=== PATIENT | female | born 1975 | race Caucasian/White ===

== ENCOUNTER → 2018-11-28 | Outpatient (CLI) | payer OTHER ==
--- NOTE | 2018-11-29 08:43 | MM ---
Reason for exam: screening (asymptomatic). Baseline mammogram. Physical Findings: Nurse did not find any significant physical abnormalities on exam. MG Screening Mammo w CAD Bilateral CC and MLO view(s) were taken. There are scattered fibroglandular densities. Focal asymmetry These results were verbally communicated with the patient and result sheet given to the patient on 11/28/18. ASSESSMENT: Incomplete: need additional imaging evaluation, BI-RAD 0 RECOMMENDATION: Special view mammogram of the left breast.
--- NOTE | 2018-11-29 08:44 | MM ---
Reason for exam: additional evaluation requested from abnormal screening. Physical Findings: Breast exam preformed at baseline screening. MG Work Up Mamm w CAD LT Spot compression CC, spot compression MLO, and ML view(s) were taken of the left breast. Focal asymmetry persistent on CC compression. These results were verbally communicated with the patient and result sheet given to the patient on 11/28/18. ASSESSMENT: Incomplete: need additional imaging evaluation, BI-RAD 0 RECOMMENDATION: Ultrasound of the left breast.
--- NOTE | 2018-11-29 08:46 | USB ---
Reason for exam: additional evaluation requested from abnormal screening. US Breast Workup Limited LT Left limited breast ultrasound including focal area of concern, retroareolar and axilla demonstrates a 0.5 x 0.3 x 0.7cm mixed lesion at 9 o'clock. These results were verbally communicated with the patient and result sheet given to the patient on 11/28/18. ASSESSMENT: Suspicious, BI-RAD 4 RECOMMENDATION: Ultrasound core biopsy of the left breast. Called Dr. Man with mammographic findings and has scheduled an appointment for the patient for 12/26/18 at 10:[address] Calhoun. Biopsy scheduled for 12/05/18 at 12:20. PRELIMINARY REPORT CALLED AND FAXED TO DR. CALHOUN ON 11/29/18.
== END | disposition home or self-care (01) ==
LOC: RADMAMWWP 12:44
PROVIDERS: ATTEND Obstetrics & Gynecology
DX: Z12.31 Encounter for screening mammogram for malignant neoplasm of breast (principal); R92.8 Other abnormal and inconclusive findings on diagnostic imaging of breast
CPT/HCPCS: 77065; 77067

== ENCOUNTER → 2018-12-05 | Day surgery (SDC) | payer OTHER ==
[2018-12-05 11:39] VITALS: RESP 16; BMI 33.4
[2018-12-05 13:09] VITALS: BP 132/81; PULSE 77; TEMP 98.1
--- NOTE | 2018-12-05 14:35 | USB ---
EXAMINATION TYPE: US biopsy breast VAD LT, Postbiopsy MG diagnostic mammo LT wo CAD DATE OF EXAM: 12/05/2018 CLINICAL HISTORY: 43-year-old female R92.8 ABN Mammogram. TECHNIQUE: Ultrasound guided core biopsy of the left breast. COMPARISON: 11/28/2018 FINDINGS: The procedure of ultrasound guided core biopsy was explained to the patient. Benefits, alternatives, and risks were discussed. An informed consent was then obtained. The patient was placed in supine positioning for imaging and for the procedure. The overlying skin was prepped and draped in usual sterile fashion. Lidocaine buffered with bicarbonate was used as anesthetic into the skin and subcutaneous tissue up to area of concern in the 9:00 left breast. Under ultrasound guidance, a 13-gauge vacuum-assisted biopsy gun device was used to obtain 6 core samples. Following this, a wing clip was left in lesion. The patient tolerated the procedure well without any immediate complication. The patient was kept in the radiology department for short stay after the procedure and then discharged home in stable condition. Postbiopsy mammogram shows the mammographic focal asymmetry. IMPRESSION: Successful, uncomplicated ultrasound guided core biopsy of vague 9:00 lesion corresponding to mammographic focal asymmetry. Full pathology results to follow. Pathology Results: Benign LEFT BREAST, NINE O'CLOCK, ULTRASOUND GUIDED CORE BIOPSY: Fibrocystic changes including stromal fibrosis and small cysts. Focal pseudoangiomatous stromal hyperplasia (PASH). Recommendation Follow up mammogram and ultrasound of the left breast in 6 months. RADHA
== END ==
LOC: RADUSWWP 11:26
PROVIDERS: ATTEND Surgery
DX: N60.12 Diffuse cystic mastopathy of left breast (principal); R92.8 Other abnormal and inconclusive findings on diagnostic imaging of breast
CPT/HCPCS: 19083; 88305; 77065; A4648; J2001

== ENCOUNTER → 2019-05-26 | Outpatient (CLI) | payer OTHER ==
--- NOTE | 2019-05-26 10:27 | MM ---
Reason for exam: follow-up at short interval from prior study. Last mammogram was performed 6 months ago. History: Benign US biopsy breast VAD LT of the left breast, December 05, 2018. Physical Findings: Nurse did not find any significant physical abnormalities on exam. MG Diagnostic Mammo LT w CAD CC and MLO view(s) were taken of the left breast. Prior study comparison: December 05, 2018, left breast MG diagnostic mammo LT wo CAD. November 28, 2018, left breast MG work up mamm w CAD LT. The breast tissue is heterogeneously dense. This may lower the sensitivity of mammography. Previous mammotome biopsy in the left breast. Focal asymmetry, stable. These results were verbally communicated with the patient and result sheet given to the patient on 05/26/19. ASSESSMENT: Incomplete: need additional imaging evaluation, BI-RAD 0 RECOMMENDATION: Ultrasound of the left breast.
--- NOTE | 2019-05-26 10:28 | USB ---
Reason for exam: follow-up at short interval from prior study. History: Benign US biopsy breast VAD LT of the left breast, December 05, 2018. US Breast LT Left complete breast ultrasound includes all four quadrants, the retroareolar region and axilla. Finding demonstrates no cystic or solid lesion seen. These results were verbally communicated with the patient and result sheet given to the patient on 05/26/19. ASSESSMENT: Negative, BI-RAD 1 RECOMMENDATION: Return to routine screening mammogram schedule for both breasts.
== END | disposition home or self-care (01) ==
LOC: RADMAMWWP 09:03
PROVIDERS: ATTEND Surgery
DX: R92.8 Other abnormal and inconclusive findings on diagnostic imaging of breast (principal)
CPT/HCPCS: 77065

== ENCOUNTER → 2020-04-14 | Outpatient (CLI) | payer OTHER ==
--- NOTE | 2020-04-15 11:11 | MM ---
Reason for exam: screening (asymptomatic). Last mammogram was performed 11 months ago. History: Benign US biopsy breast VAD LT of the left breast, December 05, 2018. Physical Findings: A clinical breast exam by your physician is recommended on an annual basis and results should be correlated with mammographic findings. MG Screening Mammo w CAD Bilateral CC and MLO view(s) were taken. Prior study comparison: May 26, 2019, left breast MG diagnostic mammo LT w CAD. December 05, 2018, left breast MG diagnostic mammo LT wo CAD. The breast tissue is heterogeneously dense. This may lower the sensitivity of mammography. Previous mammotome biopsy in the left breast. No significant changes when compared with prior studies. ASSESSMENT: Benign, BI-RAD 2 RECOMMENDATION: Routine screening mammogram of both breasts in 1 year.
== END | disposition home or self-care (01) ==
LOC: RADMAMWWP 11:55
PROVIDERS: ATTEND Family Medicine
DX: Z12.31 Encounter for screening mammogram for malignant neoplasm of breast (principal)
CPT/HCPCS: 77067

== ENCOUNTER → 2021-04-21 | Outpatient (CLI) | payer OTHER ==
--- NOTE | 2021-04-25 15:12 | MM ---
Reason for exam: screening (asymptomatic). Last mammogram was performed 1 year ago. History: Benign US biopsy breast VAD LT of the left breast, December 05, 2018. Physical Findings: A clinical breast exam by your physician is recommended on an annual basis and results should be correlated with mammographic findings. MG Screening Mammo w CAD Bilateral CC and MLO view(s) were taken. Prior study comparison: April 14, 2020, bilateral MG screening mammo w CAD. May 26, 2019, left breast MG diagnostic mammo LT w CAD. There are scattered fibroglandular densities. Stable medial focal asymmetry left breast at site of previous biopsy. No significant changes when compared with prior studies. ASSESSMENT: Benign, BI-RAD 2 RECOMMENDATION: Routine screening mammogram of both breasts in 1 year.
== END | disposition home or self-care (01) ==
LOC: RADMAMWWP 11:15
PROVIDERS: ATTEND Family Medicine
DX: Z12.31 Encounter for screening mammogram for malignant neoplasm of breast (principal)
CPT/HCPCS: 77067

== ENCOUNTER → 2022-04-24 | Outpatient (CLI) | payer OTHER ==
--- NOTE | 2022-04-25 08:05 | MM ---
Reason for Exam: Screening (asymptomatic). Last screening mammogram was performed 12 month(s) ago. Patient History: Menarche at age 15. First Full-Term at age 31. 12/05/2018, Benign Core Biopsy on the left side. Last menstrual period: 03/29/2022 Risk Values: Malu 5 year model risk: 1.3%. NCI Lifetime model risk: 12.9%. Prior Study Comparison: 05/26/2019 Left Diagnostic Mammogram, [facility]. 04/14/2020 Bilateral Screening Mammogram, [facility]. 04/21/2021 Bilateral Screening Mammogram, [facility]. Tissue Density: The breast tissue is heterogeneously dense. This may lower the sensitivity of mammography. Findings: Analyzed By CAD. There is no suspicious group of microcalcifications or new suspicious mass in either breast. Filled benign asymmetric density left breast which has been sampled previously. Overall Assessment: Benign, BI-RAD 2 Management: Screening Mammogram of both breasts in 1 year. A clinical breast exam by your physician is recommended on an annual basis and results should be correlated with mammographic findings. Electronically signed and approved by: Mike Nayak M.D. Radiologis
== END | disposition home or self-care (01) ==
LOC: RADMAMWWP 12:31
PROVIDERS: ATTEND Family Medicine
DX: Z12.31 Encounter for screening mammogram for malignant neoplasm of breast (principal)
CPT/HCPCS: 77067

== ENCOUNTER → 2023-04-26 | Outpatient (CLI) | payer OTHER ==
--- NOTE | 2023-04-27 21:56 | MM ---
Reason for Exam: Screening (asymptomatic). Last screening mammogram was performed 12 month(s) ago. Patient History: Menarche at age 15. First Full-Term at age 31. Premenopausal. 12/05/2018, Benign Core Biopsy on the left side. Risk Values: Malu 5 year model risk: 1.4%. NCI Lifetime model risk: 12.7%. Prior Study Comparison: 04/14/2020 Bilateral Screening Mammogram, [facility]. 04/21/2021 Bilateral Screening Mammogram, [facility]. 04/24/2022 Bilateral MG screening mammo w CAD, [facility]. Tissue Density: There are scattered fibroglandular densities. Findings: Analyzed By CAD. Gradually increasing mass within the medial left breast with microclip in this location. Otherwise, no significant change. Overall Assessment: Incomplete: need additional imaging evaluation, BI-RAD 0 Management: Special View Mammogram of the left breast. Diagnostic Breast Ultrasound of the left breast. Additional view to include spot 3-D CC, spot 3-D MLO, and 3-D LM. Subsequent targeted left breast ultrasound. Despite the prior biopsy, we note progressive gradual enlargement. [facility] will attempt to contact patient to return for supplemental views and ultrasound if indicated. Electronically signed and approved by: Ray Mora M.D. Radiologist
== END | disposition home or self-care (01) ==
LOC: RADMAMWWP 14:56
PROVIDERS: ATTEND Obstetrics & Gynecology
DX: Z12.31 Encounter for screening mammogram for malignant neoplasm of breast (principal)
CPT/HCPCS: 77067

== ENCOUNTER → 2023-05-18 | Day surgery (SDC) | payer OTHER ==
--- NOTE | 2023-05-23 13:04 | MM ---
Reason for Exam: Post Procedure Mammogram. Last screening mammogram was performed less than 1 month ago. Patient History: Menarche at age 15. First Full-Term at age 31. Premenopausal. 12/05/2018, Benign Core Biopsy on the left side. Risk Values: Malu 5 year model risk: 1.4%. NCI Lifetime model risk: 12.7%. Prior Study Comparison: 04/24/2022 Bilateral MG screening mammo w CAD, [facility]. 04/26/2023 Bilateral MG screening mammo w CAD, [facility]. 05/08/2023 Left MG 3D work up w/cad LT, [facility]. 05/08/2023 Left US breast workup limited LT, [facility]. Tissue Density: Left: There are scattered fibroglandular densities. Pathology Description: Location: 10 o'clock. Marker Left Behind. Needle Type: Mammotome Cores: 6 Gauge: 13 The procedure of ultrasound guided core biopsy was explained to the patient. Benefits, alternatives, and risks were discussed. An informed consent was then obtained. The patient was placed in supine positioning for imaging and for the procedure. The overlying skin was prepped and draped in usual sterile fashion. Lidocaine was used as anesthetic into the skin and subcutaneous tissue up to area of concern in the left breast at 10:00 4 cm from the nipple. Under ultrasound guidance, a 12-gauge vacuum assisted biopsy gun device was used to obtain 6 core samples. Following this, a biopsy clip was left in lesion. The patient tolerated the procedure well without any immediate complication. The patient was kept in the radiology department for short stay after the procedure and then discharged home in stable condition. Postprocedure mammogram: The patient was transferred to mammography for physician ordered post procedure mammogram for clip placement verification. Postprocedure mammogram demonstrates coil clip to be adjacent to previous biopsy clip within the left breast in appropriate position. Impression: Successful, uncomplicated ultrasound guided core biopsy of area of concern in the left breast, full pathology results to follow. Pathology Results: Result: Benign, Focal fibrosis. LEFT BREAST, 10:00 POSITION, ULTRASOUND GUIDED CORE BIOPSY: Benign breast tissue with focal fibrosis. See note. Notes Examination of the current specimen reveals benign mammary adipose tissue with focal and scattered areas of hypocellular and bland fibrosis. Rare areas within this fibrous tissue have features which are suggestive of possible pseudoangiomatous stromal hyperplasia (PASH). Another differential consideration for the fibrotic features seen includes a fibrous scar. The current specimen shows no diagnostic evidence of in situ or invasive carcinoma. It is noted that a prior left breast 9:00 position biopsy from 2019 (case [id number]) shows focal features of pseudoangiomatous stromal hyperplasia. Clinical correlation with imaging studies is suggested, as deemed clinically appropriate. Overall Assessment: Benign Assessment: MG diagnostic mammo LT wo CAD. - Left: Benign, BI-RAD 2. Management: Diagnostic Mammogram of the left breast in 6 months. If persistent enlargement, excision can be considered. Electronically signed and approved by: Magdaleno Hair D.O.
== END ==
LOC: RADUSWWP 10:14
PROVIDERS: ATTEND Surgery
DX: N60.32 Fibrosclerosis of left breast (principal)
CPT/HCPCS: 88305; 77065; 19083; A4648

== ENCOUNTER 2023-06-28 10:46 | Day surgery (SDC) | payer OTHER ==
[2023-06-26 14:51] VITALS: BMI 31.7
[~2023-06-28 10:46] MED LIST: ACETAMINOPHEN TAB 500 MG TAB PO PRN; ALPRAZolam 0.5 MG TAB PO PRN; DEXAMETHASONE SOD PHOSPHATE 4 MG/ML 1 ML VIAL IV ONE; HEPARIN SODIUM,PORCINE/PF 5,000 UNIT/0.5 ML SYRINGE SQ PRN; LACTATED RINGERS 1,000 ML IV SCH; ONDANSETRON 4 MG/2 ML VIAL IVP ONE
[2023-06-28] MEDS ORDERED: ALPRAZolam 0.5 MG TAB ONE (10:55)
[2023-06-28] MEDS ORDERED: ALPRAZolam 0.5 MG TAB PO ONE (11:27)
[2023-06-28] MEDS ORDERED: LIDOCAINE 1% INJ 10MG/ML (20 ML MDV) SQ ONE (13:06)
[2023-06-28] MEDS ORDERED: fentaNYL (PF) 50 MCG/ML 2 ML AMP ONE (14:53)
[2023-06-28] MEDS ORDERED: LIDOCAINE 2% INJ 20 MG/ML (2 ML VIAL) ONE (14:53)
[2023-06-28] MEDS ORDERED: PROPOFOL 10 MG/ML 20 ML VIAL IV ONE (14:53)
[2023-06-28] MEDS ORDERED: MIDAZOLAM 2 MG/2 ML VIAL ONE (14:53)
[2023-06-28] MEDS ORDERED: HYDROcodone/APAP 5-325MG 1 EACH TAB PO PRN (15:50)
[2023-06-28] MEDS ORDERED: NALOXONE 0.4 MG/ML 1 ML VIAL IV PRN (15:50)
--- NOTE | 2023-06-28 15:56 | P.OP ---
Date of Procedure: 06/28/23 Procedure(s) Performed: PREOPERATIVE DIAGNOSIS: Abnormal left mammogram POSTOPERATIVE DIAGNOSIS: Same PROCEDURE: Left Breast wire localization biopsy SURGEON: Unique EBL: 5 mL ANESTHESIA: General COMPLICATIONS: None OPERATIVE PROCEDURE: Patient was placed on the operating room table in the supine position. The wire entrance site was then addressed. This was present at the 9:00 location. A curvilinear incision was made adjacent to the areola. The subcutaneous tissues were dissected medially until the wire was seen. The wire was then brought out of this incision site. I followed the wire down into the breast tissue. The tissue around the wire was then excised using electrocautery. As I was dissecting there was some areas that appeared consistent with recent biopsy site changes. Specimen was then sent for permanent sectioning. Area irrigated with saline. No bleeding was seen. The subcutaneous tissues were closed using 3-0 Vicryl sutures. The skin was closed using a running 4-0 Monocryl stitch. Skin glue was then applied. DISPOSITION: Stable to recovery room
[2023-06-28 16:07] VITALS: TEMP 97
[2023-06-28] MEDS: HYDROmorphone 0.5 MG/0.5 ML SYRINGE IVP PRN ×2 (16:25→16:32)
[2023-06-28 16:33] VITALS: RESP 16
[2023-06-28] MEDS ORDERED: LACTATED RINGERS 1,000 ML IV ONE (17:01)
[2023-06-28 17:27] VITALS: BP 110/74; PULSE 76
== END 2023-06-28 17:33 | disposition home or self-care (01) ==
LOC: OR 10:46
PROVIDERS: ATTEND Surgery
DX: R92.8 Other abnormal and inconclusive findings on diagnostic imaging of breast (principal); E66.9 Obesity, unspecified; Z68.31 Body mass index [BMI] 31.0-31.9, adult
CPT/HCPCS: 81025; 76098; 19281; J2250; J1100; J0690; J2405; J2001 ×2; J3010; J2704; J1170; J1644; 88307

== ENCOUNTER → 2024-05-07 | Outpatient (CLI) | payer OTHER ==
--- NOTE | 2024-05-07 10:00 | MM ---
Reason for Exam: Clinical finding. Last screening mammogram was performed 12 month(s) ago. Patient History: Menarche at age 15. First Full-Term at age 31. Premenopausal. 06/28/2023, Benign MG pre op needle loc LT on the left side. 05/18/2023, Benign US biopsy breast VAD LT on the left side. 12/05/2018, Benign Core Biopsy on the left side. Last menstrual period: 04/21/2024 Risk Values: Malu 5 year model risk: 2.3%. NCI Lifetime model risk: 16.0%. Tissue Density: The breasts are heterogeneously dense, which may obscure small masses. Findings: Analyzed By CAD. No evidence for mass or distortion. Postoperative changes in her left breast. No suspicious microcalcifications. Overall Assessment: Benign, BI-RAD 2 Management: Screening Mammogram of both breasts in 1 year. . Results were given to the patient verbally at the time of exam. Patient should continue monthly self-breast exams. A clinical breast exam by your physician is recommended on an annual basis. This exam should not preclude additional follow-up of suspicious palpable abnormalities. Note on Malu scores and lifetime risk: 1. A Malu score greater than 3% is considered moderate risk. If this is the case, consider specialist referral to assess eligibility for a risk reducing agent. 2. If overall lifetime risk for the development of breast cancer is 20% or higher, the patient may qualify for future screening with alternating mammogram and breast MRI. Electronically signed and approved by: Mike Nayak M.D. Radiologis
== END | disposition home or self-care (01) ==
LOC: RADMAMWWP 09:02
PROVIDERS: ATTEND Surgery
DX: R92.333 Mammographic heterogeneous density, bilateral breasts (principal); R92.8 Other abnormal and inconclusive findings on diagnostic imaging of breast
CPT/HCPCS: 77062; 77066

== ENCOUNTER 2024-12-25 12:10 | Day surgery (SDC) | payer OTHER ==
[~2024-12-25 12:10] MED LIST changes: -ACETAMINOPHEN TAB 500 MG TAB PO PRN; -ALPRAZolam 0.5 MG TAB PO PRN; -DEXAMETHASONE SOD PHOSPHATE 4 MG/ML 1 ML VIAL IV ONE; -HEPARIN SODIUM,PORCINE/PF 5,000 UNIT/0.5 ML SYRINGE SQ PRN; -LACTATED RINGERS 1,000 ML IV SCH; +LIDOCAINE 1% (10MG/ML) FOR IV START INTRADERMA PRN; -ONDANSETRON 4 MG/2 ML VIAL IVP ONE
[2024-12-25] MEDS: IV FLUID CONTINUATION 1,000 ML IV ONE (12:30)
[2024-12-25 12:37] VITALS: TEMP 98
[2024-12-25] MEDS: LACTATED RINGERS 1,000 ML IV SCH (12:45)
[2024-12-25] MEDS ORDERED: PROPOFOL 10 MG/ML 20 ML VIAL IV ONE (12:49)
[2024-12-25] MEDS ORDERED: LIDOCAINE 1% INJ 10MG/ML (20 ML MDV) ONE (12:49)
--- NOTE | 2024-12-25 12:57 | P.GSHP ---
History of Present Illness H&P Date: 12/25/24 Chief Complaint: Abdominal pain 49-year-old female here for upper endoscopy. Patient seen in the office 1 month ago. Describes bloating and satiety issues. Intermittent pain in the epigastrium after meals. Some relief with antiacids. Gallbladder ultrasound normal. Also noted to have a hernia. Some dysphagia symptoms. Past Medical History Past Medical History: GERD/Reflux Additional Past Medical History / Comment(s): lower back pain History of Any Multi-Drug Resistant Organisms: None Reported Past Surgical History: Breast Surgery Additional Past Surgical History / Comment(s): D&C x1. Left breast biopsy 2019, hemorrhaged after childbirth and procedure to put in a clamp. colonoscopy Past Anesthesia/Blood Transfusion Reactions: No Reported Reaction Smoking Status: Never smoker - Past Family History Mother Family Medical History: No Reported History Medications and Allergies Home Medications Medication Instructions Recorded Confirmed Type No Known Home Medications 07/04/23 12/25/24 History Allergies Allergy/AdvReac Type Severity Reaction Status Date / Time No Known Allergies Allergy Verified 12/25/24 12:29 Surgical - Exam Vital Signs Temp Pulse Resp BP Pulse Ox 98.0 F 97 14 137/85 97 12/25/24 12:36 12/25/24 12:36 12/25/24 12:36 12/25/24 12:36 12/25/24 12:36 Abdomen: Soft, nontender, nondistended, small reducible umbilical hernia Assessment and Plan (1) Abdominal pain Narrative/Plan: Will proceed with upper endoscopy at this time Current Visit: Yes Status: Acute Code(s): R10.9 - UNSPECIFIED ABDOMINAL PAIN SNOMED Code(s): 35266724
--- NOTE | 2024-12-25 13:04 | P.PCN ---
Date of Procedure: 12/25/24 Procedure(s) Performed: Preoperative Dx: Epigastric pain Postoperative Dx: Mild gastritis, small hiatal hernia, esophagitis Procedure: EGD with Bx Anesthesia: Sedation Endoscopist: Dr. Calhoun Specimens: Antrum, GE junction nodule Endoscopic Procedure: The patient was on the endoscopy table in the left decu bitus position. The Olympus gastroscope was inserted into the oropharynx and passed under direct visualization to the region of the third portion of the duodenum. From that point the scope was slowly withdrawn inspecting all surfaces carefully. There were no neoplastic inflammatory or polypoid lesions throughout the duodenum. The pylorus was widely patent. The stomach was carefully inspected. There was mild gastritis present. A biopsy of the antrum took place to rule out H. pylori. Retroflexion revealed a small 1.5 cm fixed hiatal hernia. The GE junction was present 1.5 cm above the diaphragmatic hiatus. Just at the GE junction there was a small 5 to 6 mm nodule likely related to chronic inflammatory changes. There was no significant esophagitis seen above the GE junction. The remainder the esophagus appeared normal. The patient was then taken to the recovery room in stable condition per anesthesia guidelines. Recommendations: Resume antiacid therapy. Monitor abdominal complaints. If patient's symptoms improved with antiacid therapy continue observation.
[2024-12-25 13:45] VITALS: BP 123/83; PULSE 89; RESP 18
== END 2024-12-25 14:04 | disposition home or self-care (01) ==
LOC: ORWHC2ENDO 12:10
PROVIDERS: ATTEND Surgery
DX: K29.70 Gastritis, unspecified, without bleeding (principal); K21.00 Gastro-esophageal reflux disease with esophagitis, without bleeding; K44.9 Diaphragmatic hernia without obstruction or gangrene; M54.50 Low back pain, unspecified
CPT/HCPCS: 81025; 88305; 88342; 43239; J2003; J2704